=== PATIENT | male | born 1965 | race Caucasian/White ===

== ENCOUNTER 2017-12-21 10:16 | Outpatient (CLI) | payer OTHER ==
--- NOTE | 2017-12-21 13:19 | MRI ---
BRAIN MRI WITH AND WITHOUT CONTRAST: MRI OF THE INTERNAL AUDITORY CANALS: History: Hearing loss in left ear x 2 months. Left ear ringing x many years. Comparison: None. Technique: Brain MRI performed with and without intravenous gadolinium administration. Multisequentia l, multiplanar imaging performed. FINDINGS: No hemorrhage on the axial gradient echo sequence. No parenchymal mass, mass effect, or midline shift. Brain volume is age appropriate. Cortical ghotra wh ite matter differentiation is preserved. Ventricles and sulci are patent and symmetric. Ventral arterial flow voids are maintained. Active restricted diffusion. T2 and FLAIR sequences do not demonstrate any significant white matter hyperintensity. No parenchymal mass or mass effect or midline shift. Brain volume is age appropriate. Cortical ghotra w jesus matter differentiation is preserved. Ventricles and sulci are patent and symmetric. Calvarium has a normal T1 marrow signal intensity. Brain parenchymal structures are unremarkable. No pathologic enhancement of the brain parenchyma. Adequate aeration of the sinuses and mastoid air cells. MRI OF THE INTERNAL AUDITORY CANALS: There is appropriate signal intensity of the bilateral inner ear structures on the post contrast and T2 weighted images. There is no abnormal enhancement or enhancing masses in either internal auditory canal. There is appropriate signal intensity in the 6th as well as 7th/8th cranial nerve complexes. Coronal reformatted images demonstrate an unremarkable pituitary gland. Pituitary stock is midline. V isualized optic nerves are also unremarkable. IMPRESSION: Unremarkable pre and post contrast brain MRI as well as pre and post contrast MRI of the internal aud itory canals. POS: [facility]
== END 2017-12-21 10:17 | disposition home or self-care (01) ==
LOC: SCSMRI 10:16
PROVIDERS: ATTEND Otolaryngology Otolaryngic Allergy
DX: H90.3 Sensorineural hearing loss, bilateral (principal); H93.13 Tinnitus, bilateral
CPT/HCPCS: 70553

== ENCOUNTER 2021-08-13 14:00 | Outpatient (CLI) | payer OTHER | END 2021-08-13 14:01 | disposition home or self-care (01) | LOC: TBSIIMAG 14:00 | DX: M54.5 Low back pain (principal); M47.816 Spondylosis without myelopathy or radiculopathy, lumbar region | CPT/HCPCS: 72148 ==